=== PATIENT | female | born 1980 | race Caucasian/White ===

== ENCOUNTER → 2017-02-22 | Outpatient (CLI) | payer OTHER ==
--- NOTE | 2017-02-22 14:07 | CT ---
EXAMINATION TYPE: CT lower leg RT wo con DATE OF EXAM: 02/22/2017 1:16 PM COMPARISON: NONE HISTORY: Rt lower leg and ankle pain CT DLP: 742.6 mGycm Automated exposure control for dose reduction was used. FINDINGS: Open reduction internal fixation of the distal tibia has been performed. No acute fractures are ident ified. The old tibial fracture is evident. There are degenerative changes at the ankle. The tibia has a step-off of the articular surface laterally likely from the patient's old fracture. Three-D reconstructed images performed separately on the ventricular computer by the technologist are reviewed. IMPRESSION: 1. STATUS POST OPEN REDUCTION INTERNAL FIXATION RIGHT TIBIA 2. THERE APPEARS TO BE A STEP-OFF OF THE LATERAL ASPECT OF THE TIBIA AT THE ANKLE JOINT SPACE LIKELY FROM PATIENT'S PRIOR FRACTURE.
== END | disposition home or self-care (01) ==
LOC: RADCTMAIN 12:25
PROVIDERS: ATTEND Orthopaedic Surgery
DX: S82.291D Other fracture of shaft of right tibia, subsequent encounter for closed fracture with routine healing (principal)

== ENCOUNTER → 2017-09-19 | Day surgery (SDC) | payer OTHER ==
[2017-09-13 15:21] VITALS: BMI 58.0
[~2017-09-19] MED LIST: DEXAMETHASONE SOD PHOSPHATE 10 MG/ML 1 ML VIAL IV ONE; HYDROmorphone (PF) 1 MG/ML ONE; KETOROLAC 30 MG/ML 1 ML VIAL IVP ONE; LACTATED RINGERS 1,000 ML IV SCH; LIDOCAINE 1% 20 ML VIAL (10MG/ML) FOR IV START INTRADERMA ONE; LIDOCAINE 1% INJ 10MG/ML (20 ML MDV) ONE; MIDAZOLAM 2 MG/2 ML VIAL IV PRN; MIDAZOLAM 2 MG/2 ML VIAL ONE; PROPOFOL 10 MG/ML 20 ML VIAL IV ONE; SUCCINYLCHOLINE CHLORIDE 100 MG/5 ML SYR IV ONE; ceFAZolin 3 GM in SODIUM CHLORIDE 0.9% 100 ML IVPB ONE; fentaNYL (PF) 50 MCG/ML 2 ML AMP ONE
[2017-09-19] MEDS: ONDANSETRON 4 MG/2 ML VIAL IVP ONE ×2 (13:51→16:21)
--- NOTE | 2017-09-19 16:05 | P.OP ---
Date of Procedure: 09/19/17 Preoperative Diagnosis: 1. symptomatically hardware right ankle 2. Prior distal tibia fracture 3. Extreme morbid obesity with BMI of 58 Postoperative Diagnosis: same Procedure(s) Performed: hardware removal right ankle, deep Anesthesia: JINA Surgeon: Quinn Alcantar Bezel Cutter #1: Gage Mckenna Estimated Blood Loss (ml): 10 IV fluids (ml): 500 Pathology: other Condition: stable Disposition: PACU Indications for Procedure: The patient is a 37 year old female with a medical history significant for extreme obesity. She previously sustained a right distal tibia fracture. She underwent open reduction and internal fixation at an outside facility. She went on to heal her fracture but had ongoing pain. She came to see me for a second opinion. we attempted nonsurgical treatment but she still had some pain in her ankle. She treated the pain to the hardware. X-rays and a computed tomography scan showed a partial union of the fracture site. She requested that I remove the hardware. We discussed potential risks and Occasions of surgery including but not limited to risk of anesthesia, risk of superficial infection, risk of deep infection, risk of delayed wound healing, risk of damage to local blood vessels or nerves, risk of intraoperative fracture, risk of postoperative fracture, risk of ongoing pain, risk of need for further surgery, risk of post hematocrit arthritis, risk of DVT, risk of PE, risk of other medical complications, risk of generalized to satisfaction surgery, risk of surgery not meeting preoperative expectations and possibly loss of life or limb. The patient understands that due to her extreme obesity and the extent of her fracture that she very likely will still have some pain in her ankle. She voiced her understanding of this and provided her verbal and written consent to go forward with surgery. Description of Procedure: patient was identified in preoperative holding and the correct right leg was marked with my initials. The patient was then brought back to the operating room. She was positioned on the operating table and a general anesthetic and preoperative antibiotics were administered. A bone foam was placed under the right buttock internally rotating the leg. The left leg was secured to the table with egg foam and tape. A tourniquet was applied to the proximal aspect of the right thigh. The patient's right leg was then prepped and draped in the standard sterile fashion. A timeout was then performed identifying the correct patient, operative extremity, and procedure. The patient's leg was then elevated, exsanguinated with an Esmarch bandage and the tourniquet was inflated to 250 mmHg. I began by marking out the level of the hardware with C-arm fluoroscopy. I then made a small several centimeter incision over the distal aspect of the plate. Dissection was carried down to the subcutaneous fat to the plate. The 5 distal screws were then sequentially removed. I then made a several inch incision proximally over the plate. Dissection was carried down carefully to the fat to the plate. The 4 proximal screws were then removed. I verified with fluoroscopy that all of the screws had been removed from the plate. A medium Blum elevator was then used to release soft tissue off of the plate both proximally and distally. A shoulder hook was placed through one of the screw holes distally and a mallet was used to carefully remove the plate. Once the plate was removed I used a swab to take deep cultures over the bone given the patient's prior history of infection. There was no evidence of deep infection. C-arm fluoroscopy was then brought in to take final shots. An AP and lateral of the ankle and tibia showed all the hardware had been removed. There is no displacement of the fracture or new fractures created removal of the hardware. Both wounds were then copiously irrigated. The deep subcu tenuous fat was reapproximated using 0 Vicryl. The superficial subcutaneous layer was reapproximated using 2-0 Vicryl. The skin was closed using 3-0 nylon horizontal mattress stitches. I verified that all instrument, sponge, and sharp counts were correct. Sterile dressing consisting of Adaptic 4 x 4's and web roll was applied. The tourniquet was let down. The patient was then placed in a soft dressing including web roll and an Corby wrap. She was awoken from her anesthetic, transferred from the operating room table to the [facility] and brought to PACU without of the procedure well. I verified that all instrument, sponge, and sharp counts were correct. Clarisa MITCHELL was required is a skilled assistant clinical nurse manager due to the complexity of the case due to the patient's size. He was required for patient positioning, surgical exposure, retraction, closure and application of dressing. Plan: The patient is going to discharge home as an outpatient. She can weight- bear as tolerated in her boot. She'll be given [place] for pain control. She'll be given aspirin 325 mg twice a day for DVT prophylaxis.
[2017-09-19] MEDS: HYDROmorphone 0.5 MG/0.5 ML SYRINGE IVP PRN ×4 (16:15→16:45)
[2017-09-19 16:26] VITALS: TEMP 97.9
[2017-09-19 16:32] VITALS: RESP 16
--- NOTE | 2017-09-19 16:45 | FL ---
Fluoroscopy HISTORY: Hardware removal 8 seconds fluoroscopy time supplied to the referring clinician. 4 intraoperative C-arm images docume nt the procedure. See dictated report from orthopedic surgery.
--- NOTE | 2017-09-19 16:46 | XR ---
Limited right ankle HISTORY: Hardware removal 4 intraoperative C-arm images document the procedure
[2017-09-19 18:42] VITALS: BP 123/69; PULSE 81
== END | disposition home or self-care (01) ==
LOC: OR 13:13
PROVIDERS: ATTEND Orthopaedic Surgery
DX: T84.84XA Pain due to internal orthopedic prosthetic devices, implants and grafts, initial encounter (principal); E66.01 Morbid (severe) obesity due to excess calories; Z68.43 Body mass index [BMI] 50.0-59.9, adult; G89.29 Other chronic pain; Z79.899 Other long term (current) drug therapy; J30.2 Other seasonal allergic rhinitis; R56.9 Unspecified convulsions; Z98.51 Tubal ligation status; Z88.8 Allergy status to other drugs, medicaments and biological substances; Z91.09 Other allergy status, other than to drugs and biological substances; Z91.013 Allergy to seafood
CPT/HCPCS: 81025; 87070; 87205; 87075; 73600; 20680; J2250; J1100; J0690; J2405; J2001; J3010; J1885; J1170 ×2; J0330; J2704